=== PATIENT | male | born 1970 | race Caucasian/White ===

== ENCOUNTER 2020-05-08 11:19 | Emergency (ER) | payer SELFPAY ==
[~2020-05-08] VITALS: Ht 167.6 cm; Wt 73.6 kg
[2020-05-08 11:22] VITALS: BP 132/75
[2020-05-08] MEDS ORDERED: LIDOCAINE-MPF 1%, 5ML ONE (11:45)
[2020-05-08] MEDS ORDERED: LIDOCAINE-MPF 1%, 5ML INFIL ONE (12:00)
[2020-05-08] MEDS ORDERED: HYDROcodone/APAP 5/325 TABLET PO ONE (12:00)
[2020-05-08] MEDS ORDERED: HYDROcodone/APAP 5/325 TABLET ONE (12:27)
[2020-05-08] MEDS ORDERED: NEOSPORIN OINT. PKT 1 PACKET ONE (12:35)
== END 2020-05-08 13:14 | disposition home or self-care (01) ==
LOC: ED 12:20
DX: L60.0 Ingrowing nail (principal); M79.675 Pain in left toe(s); Z87.891 Personal history of nicotine dependence
CPT/HCPCS: 11730; 99284